=== PATIENT | female | born 1950 | race Caucasian/White ===

== ENCOUNTER 2022-05-22 09:27 | Outpatient (REF) | payer MEDICARE, SELFPAY ==
[2022-05-22 09:38] LABS: MANUAL DIFF FLAG NO
[2022-05-22 10:02] LABS: Basophils Absolute Auto 0.1 X10*3/uL (0.0-0.2); Eosinophils Absolute Auto 0.1 X10*3/uL (0.0-0.4); Eosinophils Percent Auto 2.3 % (0-4); Hematocrit 44.6 % (37.0-47.0); Hemoglobin 14.6 g/dl (12.0-16.0); Imm Gran Abs Auto 0.02 X10*3/uL (0.00-0.03); Imm Gran Pct Auto 0.3 % (0.0-0.4); Lymphocytes Absolute Auto 1.6 X10*3/uL (1.2-4.9); Lymphocytes Percent Auto 26.8 % (20-40); Mean Corpuscular HGB Conc 32.7 g/dl (31.0-35.0); Mean Corpuscular Volume 88.5 fL (80.0-98.0); Monocytes Absolute Auto 0.6 X10*3/uL (0.1-1.2); Monocytes Percent Auto 10.3 % (2-11); Neutrophils Absolute Auto 3.6 x10*3/uL (2.0-8.3); Neutrophils Percent Auto 59.3 % (45-73); Platelet Count 350 X10*3/uL (160-400); Red Blood Count 5.04 X10*6/uL (4.20-5.50); Red Cell Distribution Width 12.9 % (11.0-16.0); White Blood Count 6.1 X10*3/uL (4.8-10.8)
[2022-05-22 10:21] LABS: Alanine Aminotransferase 12 U/L (0-31); Albumin Level 4.2 g/dL (3.5-5.0); Alkaline Phosphatase 44 U/L (39-117); Anion Gap 14 (12-20); Aspartate Amino Transferase 19 U/L (5-31); Bilirubin Total 0.6 mg/dL (0.0-1.0); Blood Urea Nitrogen 7 mg/dL (9-16); Calcium 9.5 mg/dL (8.4-10.2); Carbon Dioxide 28 mmol/L (22-29); Chloride 106 mmol/L (96-108); Cholesterol 203 mg/dL; Estimated Glomerular Filt Rate > 60; Glucose Random 101 mg/dL (60-115); HDL Cholesterol 61 mg/dL; LDL Cholesterol Calculated 109 mg/dl; Potassium 4.6 mmol/L (3.3-5.1); Sodium 143 mmol/L (135-145); Total Protein 6.5 g/dL (6.5-8.0); Triglycerides 165 mg/dL
== END 2022-05-22 09:28 | disposition home or self-care (01) ==
LOC: HO.LAB 09:27
PROVIDERS: PCP Internal Medicine; Visit Provider Internal Medicine
DX: K21.9 Gastro-esophageal reflux disease without esophagitis (principal); M81.8 Other osteoporosis without current pathological fracture; Z86.010 Personal history of colon polyps
CPT/HCPCS: 36415; 80053; 80061; 85025

== ENCOUNTER 2022-06-19 10:41 | Outpatient (REF) | payer MEDICARE, SELFPAY ==
[2022-06-19 14:20] LABS: Thyroid Stimulating Hormone 1.72 uIU/mL (0.32-4.0)
[2022-06-19 14:23] LABS: Vitamin B12 184 pg/mL (200-900)
== END 2022-06-19 10:42 | disposition home or self-care (01) ==
LOC: HO.10HDL 10:41
PROVIDERS: Visit Provider Internal Medicine
DX: Z00.00 Encounter for general adult medical examination without abnormal findings (principal); I10 Essential (primary) hypertension; M70.52 Other bursitis of knee, left knee; Z86.010 Personal history of colon polyps
CPT/HCPCS: 36415; 82607; 84443

== ENCOUNTER 2022-10-03 08:18 | Day surgery (SDC) | payer MEDICARE, SELFPAY ==
--- NOTE | 2022-09-29 12:52 | HO.ANESPROP2 ---
Documented by User: Felecia Sullivan NP 09/29/22 12:52 HPI - Anesthesia Eval Consult details Narrative: 72yo F for Colonoscopy [facility] Past Medical History Medical History Colon polyps HTN (hypertension) Surgical History Surgical History H/O elbow surgery Hx of colonoscopy Hx of tonsillectomy Social History Social History Patient Tobacco Use Status: Former Tobacco user Quit Date: 30 yrs ago Use of substances other than those prescribed or required for medical reasons: No Are you DNR?: No Advance Directives: No Advance Directives Information Provided: Yes Meds Allergies Allergy/AdvReac Type Severity Reaction Status Date / Time No Known Allergies Allergy Verified 10/03/22 08:41 Home Medications Medication Instructions Recorded Confirmed Last Taken Type cyanocobalamin (vitamin B-12) 1 tab sublingual DAILY 09/29/22 09/29/22 Unknown History 3,000 mcg sublingual lozenge losartan 50 mg tablet 1 tab PO DAILY 09/29/22 09/29/22 Unknown History Exam Exam Date and Time: September 29, 2022 1252 Pertinent Lab Results Pertinent Lab Results: Laboratory Tests 05/22/22 05/22/22 09:36 09:36 WBC 6.1 Hgb 14.6 Hct 44.6 Plt Count 350 Sodium 143 Potassium 4.6 Chloride 106 Carbon Dioxide 28 BUN 7 L Creatinine 0.83 Assessment and Plan Assessment Anesthesia Assessment: Chart Reviewed Documented by User: Ze Hair MD 10/03/22 09:51 [facility] Past Medical History Medical History Colon polyps HTN (hypertension) Family History Family history of problems with anesthesia: No Surgical History Surgical History H/O elbow surgery Hx of colonoscopy Hx of tonsillectomy History of Problems with Anesthesia: No Social History Social History Patient Tobacco Use Status: Former Tobacco user Quit Date: 30 yrs ago Use of substances other than those prescribed or required for medical reasons: No Are you DNR?: No Advance Directives: No Advance Directives Information Provided: Yes Meds Allergies Allergy/AdvReac Type Severity Reaction Status Date / Time No Known Allergies Allergy Verified 10/03/22 08:41 Home Medications Medication Instructions Recorded Confirmed Last Taken Type cyanocobalamin (vitamin B-12) 1 tab sublingual DAILY 09/29/22 09/29/22 Unknown History 3,000 mcg sublingual lozenge losartan 50 mg tablet 1 tab PO DAILY 09/29/22 09/29/22 Unknown History Exam Airway Mallampati Class: II TM Dist: >3cm Neck ROM: Full Loose/Missing/Broken Teeth: No (Rrr) Lungs: clear Assessment and Plan Final Anesthetic Review Family History of Problems with Anesthesia: No History of Problems with Anesthesia: No NPO: Yes ASA Class: II Final Preanesthetic Review: No Changes in Pt Med Stat and Anes Risks/Benef Reviewed Patient Risk: Low Procedure Risk: Low Anesthetic Plan Anesthetic Plan: MAC: Disposition: Standard PACU
[2022-10-03 08:42] VITALS: BMI 29.2
[2022-10-03 08:52] VITALS: BP 128/73; PULSE 99; RESP 16; TEMP 37; O2SAT 94
[2022-10-03] MEDS: Lactated Ringers 1,000 ML 100 ML IVCONT (09:02)
--- NOTE | 2022-10-03 09:46 | MHC.SHP ---
Pre-Procedural Eval Section A Date of Service: 10/03/22 The patient is an INPATIENT: No Changes since office visit: No Cold of Flu in the past 2 weeks, No New Medical Problems, No Changes in Medication and No Patient answered all questions The History & Physical has been completed within 30 days and I have reviewed it.: Yes Section B Chief Complaint: screening Allergies: Allergies Allergy/AdvReac Type Severity Reaction Status Date / Time No Known Allergies Allergy Verified 10/03/22 08:41 Plan I have reviewed the history and physical and performed a pertinent physical examination on my patient. No changes have occurred unless specified. Time Spent With Patient Time: Total time managing care of this patient today ____ minutes.
--- NOTE | 2022-10-03 10:34 | P.BOP_ITS ---
Brief Operative Note Date of Service: 10/03/22 Pre-op diagnosis: screening Post-op diagnosis: same Procedure: colonoscopy Surgeon: Jb Levine Anesthesia: MAC Was an Rehab Technician used for this Procedure?: No Estimated blood loss (mL): 5 Pathology: other Condition: stable Disposition: PACU
[2022-10-03 10:38] VITALS: BP 117/82; PULSE 103; RESP 14; TEMP 37.1; O2SAT 95
[2022-10-03 10:53] VITALS: BP 120/76; PULSE 86; RESP 16; TEMP 37.1; O2SAT 96
--- NOTE | 2022-10-03 11:07 | OP_ITS ---
SURGEON: Jb Levine MD INDICATIONS: Colon cancer screening. PREOPERATIVE DIAGNOSIS: POSTOPERATIVE DIAGNOSIS: PROCEDURE PERFORMED: Colonoscopy to the terminal ileum with snare polypectomy and biopsy. ESTIMATED BLOOD LOSS: COMPLICATIONS: ANESTHESIA: Monitored anesthesia care. ASSISTANTS: SPECIMENS: DESCRIPTION OF PROCEDURE: The procedure was performed on 10/03/2021. A history and physical were performed. The risks and benefits of the procedure were explained to the patient. Informed consent was obtained. The patient was placed in the left lateral decubitus position. A digital rectal exam was performed and was found to be normal. The Olympus pediatric video colonoscope was introduced into the rectum and advanced to the cecum without difficulty. The cecum was identified by transillumination, palpation, identification of ileocecal valve. Examination was performed. The scope was removed. She tolerated the procedure well and was returned to recovery room in stable condition. FINDINGS: The terminal ileum was normal. The visualized colonic mucosa was normal. In the right colon, there was an 8 x 10 mm sessile polyp, which was removed in piecemeal manner with a snare. At 90 cm, there was a less than 5 mm sessile polyp, which was removed with biopsy forceps. Retroflexed examination showed small internal hemorrhoids. There was mild sigmoid diverticulosis. No other polyps were identified. IMPRESSION: Colon polyps. RECOMMENDATION: Follow up the biopsy results. MD CHRIS Quintana/SHERMAN / [id number]
== END 2022-10-03 11:45 | disposition home or self-care (01) ==
PROVIDERS: PCP Internal Medicine; Visit Provider Internal Medicine Gastroenterology
PROC: 0DJD8ZZ Inspection of Lower Intestinal Tract, Via Natural or Artificial Opening Endoscopic (ICD-10-PCS; CPT 45378; principal; 2022-10-03 09:30)
DX: Z12.11 Encounter for screening for malignant neoplasm of colon (principal); Z86.010 Personal history of colon polyps; D12.2 Benign neoplasm of ascending colon; D12.3 Benign neoplasm of transverse colon; K57.30 Diverticulosis of large intestine without perforation or abscess without bleeding; K64.8 Other hemorrhoids; I10 Essential (primary) hypertension; Z79.899 Other long term (current) drug therapy
CPT/HCPCS: 45385; 45380; 88305

== ENCOUNTER 2022-12-05 10:59 | Outpatient (REF) | payer MEDICARE, SELFPAY ==
[2022-12-05 15:06] LABS: Alanine Aminotransferase 13 U/L (0-31); Albumin Level 4.2 g/dL (3.5-5.0); Alkaline Phosphatase 45 U/L (39-117); Anion Gap 13 (12-20); Aspartate Amino Transferase 21 U/L (5-31); Bilirubin Total 0.8 mg/dL (0.0-1.0); Blood Urea Nitrogen 7 mg/dL (9-16); Calcium 9.4 mg/dL (8.4-10.2); Carbon Dioxide 27 mmol/L (22-29); Chloride 105 mmol/L (96-108); Estimated Glomerular Filt Rate > 60; Glucose Random 99 mg/dL (60-115); Potassium 4.1 mmol/L (3.3-5.1); Sodium 141 mmol/L (135-145); Total Protein 6.4 g/dL (6.5-8.0)
[2022-12-05 15:28] LABS: Folate 16.9 ng/mL (> or = 4.0); Vitamin B12 1552 pg/mL (200-900)
== END 2022-12-05 11:00 | disposition home or self-care (01) ==
LOC: HO.10HDL 10:59
PROVIDERS: Visit Provider Internal Medicine
DX: D51.9 Vitamin B12 deficiency anemia, unspecified (principal); I10 Essential (primary) hypertension
CPT/HCPCS: 36415; 80053; 82607; 82746

== ENCOUNTER 2023-05-09 09:11 | Outpatient (REF) | payer MEDICARE, SELFPAY ==
[2023-05-09 10:32] LABS: MANUAL DIFF FLAG NO
[2023-05-09 10:44] LABS: Basophils Absolute Auto 0.1 X10*3/uL (0.0-0.2); Basophils Percent Auto 0.8 % (0-2); Eosinophils Absolute Auto 0.2 X10*3/uL (0.0-0.4); Hematocrit 41.3 % (37.0-47.0); Hemoglobin 13.9 g/dl (12.0-16.0); Imm Gran Abs Auto 0.02 X10*3/uL (0.00-0.03); Imm Gran Pct Auto 0.3 % (0.0-0.4); Lymphocytes Absolute Auto 2.4 X10*3/uL (1.2-4.9); Lymphocytes Percent Auto 32.6 % (20-40); Mean Corpuscular HGB Conc 33.7 g/dl (31.0-35.0); Mean Corpuscular Volume 89.2 fL (80.0-98.0); Mean Platelet Volume 10.5 fL (9.4-12.3); Monocytes Absolute Auto 0.7 X10*3/uL (0.1-1.2); Monocytes Percent Auto 9.5 % (2-11); Neutrophils Percent Auto 54.8 % (45-73); Platelet Count 378 X10*3/uL (160-400); Red Blood Count 4.63 X10*6/uL (4.20-5.50); Red Cell Distribution Width 12.7 % (11.0-16.0); White Blood Count 7.4 X10*3/uL (4.8-10.8)
[2023-05-09 11:06] LABS: Alanine Aminotransferase 12 U/L (0-31); Alkaline Phosphatase 37 U/L (39-117); Anion Gap 14 (12-20); Aspartate Amino Transferase 21 U/L (5-31); Bilirubin Total 0.5 mg/dL (0.0-1.0); Blood Urea Nitrogen 7 mg/dL (9-16); Calcium 9.2 mg/dL (8.4-10.2); Carbon Dioxide 24 mmol/L (22-29); Chloride 106 mmol/L (96-108); Cholesterol 197 mg/dL; Estimated Glomerular Filt Rate > 60; Glucose Random 107 mg/dL (60-115); HDL Cholesterol 58 mg/dL; LDL Cholesterol Calculated 114 mg/dl; Potassium 3.8 mmol/L (3.3-5.1); Sodium 140 mmol/L (135-145); Total Protein 6.6 g/dL (6.5-8.0); Triglycerides 129 mg/dL
== END 2023-05-09 09:12 | disposition home or self-care (01) ==
LOC: HO.10HDL 09:11
PROVIDERS: Visit Provider Internal Medicine
DX: I10 Essential (primary) hypertension (principal); M70.52 Other bursitis of knee, left knee
CPT/HCPCS: 36415; 80053; 80061; 85025

== ENCOUNTER 2023-11-26 13:47 | Outpatient (AMB) | payer MEDICARE, SELFPAY ==
--- NOTE | 2023-11-26 13:51 | A.OFFVIS_ITS ---
Intake Vital Signs 11/26/23 13:53 Height 5 ft 3 in Weight 171 lb 8.314 oz BMI 30.4 BP 120/60 Blood Pressure Location Lt brachial Position Sitting Pulse 114 H Intake Visit Reasons: RISK TECH/Dr. 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 She is a pleasant 73-year-old female with slightly anxious with prior history of hyperlipidemia and hypertension. Patient recently EKG was noted to Q-waves in inferior leads. She was referred here for further evaluation. She denies any cardiac symptoms. Although she notices that heart rate is usually elevated in healthcare setting. She denies any palpitations. Denies any worsening exertional chest pain or shortness of breath. She denies any heart failure symptoms. She was referred here for further evaluation. [facility], [facility] Medical History Colon polyps HTN (hypertension) Surgical History Hx of tonsillectomy Hx of colonoscopy H/O elbow surgery Family History Father Diabetes Mother No problems noted. Social History Patient Tobacco Use Status: Former Tobacco user Quit Date: 30 yrs ago Review of Systems Const Denies chills, Denies daytime sleepiness, Denies fatigue, Denies fever(s), Denies frequent falls, Denies poor appetite, Denies snoring, Denies stops breathing during sleep, Denies weakness, Denies weight gain and Denies weight loss Eyes Denies loss of vision ENT Denies dizziness and Denies hearing loss Card Denies chest pain, Denies claudication, Denies leg edema, Denies lightheadedness, Denies palpitations, Denies dyspnea, Denies dyspnea on exertion and Denies orthopnea Resp Denies cough, Denies excessive phlegm production, Denies dyspnea, Denies dyspnea on exertion, Denies snoring and Denies wheezing GI Denies abdominal pain, Denies hematochezia, Denies change in bowel habits, Denies nausea and Denies vomiting Denies urinary frequency and Denies dysuria Musc Denies arthralgias, Denies muscle weakness, Denies numbness and Denies other (frequent falls) Skin/Breast Denies nail changes and Denies rash Neuro Denies Abnormal speech present, Denies dizziness, Denies frequent falls, Denies loss of vision, Denies memory loss, Denies numbness and Denies weakness Psych Denies depression and Denies memory loss Endo Denies fatigue and Denies palpitations Hany/Lymph Reports easy bruising and Reports other (anemia) Aller/Immun Denies wheezing Physical Exam Vital Signs: Last Vital Signs Pulse 114 H 11/26/23 13:53 BP 120/60 11/26/23 13:53 BMI result Body Mass Index 30.4 Const General: cooperative, comfortable, no acute distress, alert, awake and anxious Nutritional Appearance: obese Limitations: no limitations HEENT Head: Yes normocephalic and Yes atraumatic Neck Neck: Yes trachea midline, Yes supple and Yes no JVD Resp Effort & Inspection: normal respiratory effort Auscultation: clear to auscultation bilaterally Cardio Jugular venous distension: no JVD Rate: tachycardic Rhythm: regular rhythm Heart sounds: S1 normal heart sound present, S2 normal heart sound present, no click, no gallops, no murmurs and no rubs GI Auscultation: normal bowel sounds Skin General skin exam: no rashes or lesions noted Neuro General: no focal motor deficits Speech: No Abnormal speech present Extrem General: Yes no clubbing, cyanosis or edema Psych Appearance: grossly normal Affect: Anxious affect present Office Procedures EKG Details: EKG shows sinus tachycardia with normal EKG [id number], Complete Assessment & Plan Assessment & Plan (1) Abnormal EKG: Code(s): R94.31 - Abnormal electrocardiogram [ECG] [EKG] Plan: Abnormal EKG with Q-waves on the 12 lead EKG done through office multiple risk factors. She has no cardiac symptoms. Although asymptomatic myocardial ischemia needs to be ruled out. Most likely abnormal EKG due to body habitus and placement of leads as well as respiratory phase in which EKG was performed. I would suggest her to undergo stress echocardiogram to evaluate for myocardial ischemia. This test will be scheduled in near future. Also suggest echocardiogram for underlying hypertension to for hypertensive heart disease as well as pulmonary hypertension. Further treatment based on the findings. (2) HTN (hypertension): Code(s): I10 - Essential (primary) hypertension Plan: Hypertension which is currently well optimized advised to monitor blood pressure at home maintain a log. Goal blood pressure less than 130/84. Low-salt diet was advised. Continue participate in aggressive lifestyle modification with weight loss as well as regular physical activity. Noted to have sinus tachycardia which appears to be more related to anxiety. Continue statin therapy with target goal LDL definitely less than 100 mg/dL. Further screening can be performed with a coronary calcium score patient so wishes. Will follow up in the clinic after above-mentioned test. Thank you for allowing me to partake in the care (3) Sinus tachycardia: Code(s): R00.0 - Tachycardia, unspecified Plan: Sinus tachycardia related to anxiety. No specific treatment required Orders: Orders CA echo stress exercise 11/26/23 R94.31 - Abnormal electrocardiogram [ECG] [EKG] CT Coronary Calcium Score 4 Weeks I10 - Essential (primary) hypertension TSH reflex Free T4 11/26/23 I10 - Essential (primary) hypertension Basic Metabolic Panel 11/26/23 I10 - Essential (primary) hypertension Complete Blood Count no Diff 11/26/23 I10 - Essential (primary) hypertension CA echo transthoracic complete 11/26/23 R94.31 - Abnormal electrocardiogram [ECG] [EKG] Coding Level of Care Code New Pt Level 4 (11977) Diagnoses Abnormal EKG R94.31 HTN (hypertension) I10 Sinus tachycardia R00.0 CPT Codes EKG - CPT: 17113-[id number], Complete ([id number])
[2023-11-26 13:53] VITALS: BP 120/60; PULSE 114; BMI 30.4
== END 2023-11-26 14:15 | disposition home or self-care (01) ==
PROVIDERS: PCP Internal Medicine; Visit Provider Internal Medicine Cardiovascular Disease
DX: R94.31 Abnormal electrocardiogram [ECG] [EKG] (principal); I10 Essential (primary) hypertension; R00.0 Tachycardia, unspecified
CPT/HCPCS: 93010; 99204

== ENCOUNTER → 2023-11-26 13:47 | Outpatient (BNVA) | payer MEDICARE, SELFPAY | PROVIDERS: PCP Internal Medicine; Visit Provider Internal Medicine Cardiovascular Disease | DX: R94.31 Abnormal electrocardiogram [ECG] [EKG] (principal); I10 Essential (primary) hypertension; R00.0 Tachycardia, unspecified | CPT/HCPCS: 93005; 99202 ==

== ENCOUNTER 2023-12-12 09:45 | Outpatient (REF) | payer MEDICARE, SELFPAY ==
[2023-12-12 10:47] LABS: Alanine Aminotransferase 14 U/L (0-31); Albumin Level 4.1 g/dL (3.5-5.0); Alkaline Phosphatase 41 U/L (39-117); Anion Gap 9 (12-20); Aspartate Amino Transferase 19 U/L (5-31); Bilirubin Total 0.6 mg/dL (0.0-1.0); Blood Urea Nitrogen 8 mg/dL (9-16); Calcium 9.1 mg/dL (8.4-10.2); Carbon Dioxide 28 mmol/L (22-29); Chloride 107 mmol/L (96-108); Cholesterol 145 mg/dL (<200); Estimated Glomerular Filt Rate > 60; Glucose Random 102 mg/dL (60-115); HDL Cholesterol 62 mg/dL (>40); LDL Cholesterol Calculated 61 mg/dL (<100); Potassium 4.2 mmol/L (3.3-5.1); Sodium 140 mmol/L (135-145); Total Protein 6.6 g/dL (6.5-8.0); Triglycerides 112 mg/dL (<150)
== END 2023-12-12 09:46 | disposition home or self-care (01) ==
LOC: HO.10HDL 09:45
PROVIDERS: Visit Provider Internal Medicine
DX: I10 Essential (primary) hypertension (principal); E78.00 Pure hypercholesterolemia, unspecified; H26.9 Unspecified cataract; K44.9 Diaphragmatic hernia without obstruction or gangrene
CPT/HCPCS: 36415; 80053; 80061

== ENCOUNTER → 2024-01-04 14:45 | Outpatient (REF) | payer MEDICARE, SELFPAY ==
--- NOTE | 2024-01-04 14:48 | CA_ITS ---
Transthoracic Echocardiogram Patient (Last, First, Middle): Iris Bunn J Gender: Female Date of : 1950 Age: 73 Procedure Date: 01/04/2024 Procedure Type: Transthoracic Echocardiogram Location: OP Height: 160.02 cm Weight: 74.84 kg BSA: 1.78 m2 Heart Rate: 76 bpm BP: 125 / 70 mmHg Children'S Entertainer: AMBROSIO Kruger MD: Cristobal Jackson MD Flight Readiness Technician: Cristobal Jackson MD Symptoms: R94.31 - Abnormal electrocardiogram [ECG] [EKG] Study Quality: Adequate ECG Rhythm: Sinus Conclusions: - 1. Normal LV ejection fraction of 60 65% with impaired relaxation filling pattern 2. Mild aortic regurgitation 3. Normal RV systolic pressure 4. Upper limits of normal ascending aortic size at 3.5 cm 5. No gross pericardial effusion Findings Left Ventricle Normal left ventricular size, thickness, and systolic function. The visually estimated ejection fraction is between 60-65%. Spectral Doppler is indicative of an impaired relaxation filling pattern. E/E prime ratio is between 8 and 15 consistent with indeterminate filling pressures. Right Ventricle Normal right ventricular cavity size and systolic function. Atria Both atria are normal in size. Interatrial shunt cannot be excluded. Aortic Valve There is mild calcification of the aortic valve. There is no aortic valve stenosis. There is mild aortic valve regurgitation. Mitral Valve Likely normal mitral valve structure and function. There is trace mitral valve regurgitation. There is no mitral valve stenosis. Pulmonic Valve The pulmonic valve is likely normal. Tricuspid Valve Normal tricuspid valve structure. There is mild tricuspid valve regurgitation. The right ventricular systolic pressure is normal. The right ventricular systolic pressure is 26 mmHg. Normal right atrial pressure. There is no evidence of pulmonary hypertension. Great Vessels The pulmonary artery was not well visualized. Venous The inferior vena cava is normal in size and collapses greater than 50% with inspiration. Pericardium/Pleural There is no evidence of pericardial effusion. Prior Study Comparison No prior study available for comparison. Measurements 2D Linear Measurements IVSd: 1.19 0.6-0.9/0.6-1.0 cm LVIDd: 4.03 3.9-5.3/4.2-5.9 cm LVIDd Index: 2.26 2.4-3.2/2.2-3.1 cm/m2 LVIDs: 2.42 2.0-3.6 cm LVPWd: 0.99 0.7-1.1 cm LA Diam: 3.50 2.7-3.8/3.0-4.0 cm LAIDs Index: 1.97 1.5-2.3 cm/m2 LV Mass: 180.39 67-162/88-224 g LV Mass Index: 101.34 43-95/49-115 g/m2 LVOT Diam: 2.10 3.0+(-)1.3 cm Mitral Valve MV Pk E: 0.74 MV PK A: 0.89 MV Decel Time: 255.00 E/A: 0.80 E'Lateral: 7.72 E'Medial: 5.11 E/E' Med: 14.50 E/E' Lat: 9.60 PHT: 75.00 MVA PHT: 2.93 Decel Forrest: 2.91 Aortic Valve AoV Pk Benson: 1.38 AoV Mn Benson: 1.01 AoV VTI: 0.29 AoV Pk Grad: 8.00 Aov Mn Grad: 4.00 AISHA Cont.VTI: 3.51 LVOT LVOT Pk Benson: 1.30 LVOT Mn Benson: 0.87 LVOT VTI: 0.30 LVOT Pk Grad: 7.00 LVOT Mn Grad: 4.00 LVOT Diam: 2.10 LVOT Area: 3.46 Diastolic Function MV Pk E: 0.74 MV Pk A: 0.89 E/A: 0.80 E'Medial: 5.11 E/E' Med: 14.50 E' Laterial: 7.72 E/E' Lat: 9.60 Right Ventricle TAPSE (mm): 24.80 Tricuspid Valve TR Pk Benson: 2.42 TR Pk Grad: 23.00 RA Press: 3.00 RVSP: 26.00 Great Vessels Aorta Sinus of Valsalva: 3.40 2.0-3.5 cm Ao Asc: 3.50 2.1-3.4 cm Ao Arch: 2.90 Updated in Other Vendor System with Status of Final Cristobal Jackson MD electronically signed on 01/05/2024 11:26:41 AM with status of Final
== END ==
LOC: HO.CARD 14:45
PROVIDERS: PCP Internal Medicine; Visit Provider Internal Medicine Cardiovascular Disease
DX: R94.31 Abnormal electrocardiogram [ECG] [EKG] (principal)
CPT/HCPCS: 93306

== ENCOUNTER → 2024-01-04 14:48 | Outpatient (BNV) | payer MEDICARE, SELFPAY | PROVIDERS: PCP Internal Medicine; Visit Provider Internal Medicine Cardiovascular Disease | DX: I35.1 Nonrheumatic aortic (valve) insufficiency (principal) | CPT/HCPCS: 93306 ==

== ENCOUNTER → 2024-01-10 10:56 | Outpatient (REF) | payer MEDICARE, SELFPAY ==
--- NOTE | 2024-01-10 10:58 | CA_ITS ---
Acquisition Time: 2024-01-10 10:54:58 Total Exercise Time: 00:06:00 Test Indications: ABN EKG Medications: SEE H Protocol: DAYAMI Max HR: 162 BPM 110% of Pred: 147 BPM Max BP: 148/072 mmHG Max Work Load: 7.0 METS Exercise stress test exercise 6 min of Dayami protocol achieving 100% MPHR, with mild SOB, no chest discomfort, without arrhythmias, with noromotensive response to exericse, without EKG changes. Echo images obtained by tech at rest and immediately post peak exericse. Definity contrast used Test reviewed with Dr. Hall. Referred By: Cristobal Jackson Overread By: Krystle Jaramillo
== END ==
LOC: HO.CARD 10:56
PROVIDERS: PCP Internal Medicine; Visit Provider Internal Medicine Cardiovascular Disease
DX: R94.31 Abnormal electrocardiogram [ECG] [EKG] (principal)
CPT/HCPCS: 93350; Q9957

== ENCOUNTER → 2024-01-10 10:58 | Outpatient (BNV) | payer MEDICARE, SELFPAY | PROVIDERS: PCP Internal Medicine; Visit Provider Nurse Practitioner | DX: R06.02 Shortness of breath (principal); R94.31 Abnormal electrocardiogram [ECG] [EKG] | CPT/HCPCS: 93016; 93018; 93350; 93352 ==

== ENCOUNTER 2024-03-31 11:05 | Outpatient (AMB) | payer MEDICARE, SELFPAY ==
--- NOTE | 2024-03-31 11:12 | A.OFFVIS_ITS ---
Vital Signs 03/31/24 11:13 Height 5 ft 3 in Weight 174 lb 2.643 oz BMI 30.8 BP 124/68 Blood Pressure Location Lt brachial Position Sitting Pulse 88 Intake Visit Reasons: 3 mth f/up echo/ stress echo/ labs Intake Note: 3mo f/u Echo/labs. 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 No new symptoms. Coronary calcium score suggested predominantly LAD territory calcium buildup. Stress echocardiogram at moderate workload was negative for ischemia. Echocardiogram shows normal LV ejection fraction with mild aortic regurgitation. She denies any new symptoms. Her most recent LDL is well optimized on atorvastatin therapy. [facility] Medical History (Updated 03/31/24 @ 12:15 by Cristobal Jackson MD) CAD (coronary artery disease) Colon polyps HTN (hypertension) Surgical History Hx of tonsillectomy Hx of colonoscopy H/O elbow surgery Family History Father Diabetes Mother No problems noted. Social History Patient Tobacco Use Status: Former Tobacco user Review of Systems Const Reports chills, Reports fatigue, Reports fever(s), Reports frequent falls, Reports weakness, Reports weight gain and Reports weight loss ENT Reports dizziness Card Reports chest pain, Reports leg edema, Reports lightheadedness, Reports palpitations, Reports dyspnea on exertion and Reports orthopnea Resp Reports cough and Reports dyspnea on exertion GI Reports hematochezia and Reports change in stool character Musc Reports abnormal gait, Reports muscle weakness, Reports numbness, Reports radiating pain into limb and Reports tingling Neuro Denies Abnormal speech present, Reports abnormal gait, Reports dizziness, Reports frequent falls, Reports numbness, Reports tingling and Reports weakness Endo Reports fatigue and Reports palpitations Physical Exam Vital Signs: Last Vital Signs Pulse 88 03/31/24 11:13 BP 124/68 03/31/24 11:13 BMI result Body Mass Index 30.8 Const General: cooperative, comfortable, no acute distress, alert, awake and anxious Nutritional Appearance: obese Limitations: no limitations HEENT Head: Yes normocephalic and Yes atraumatic Neck Neck: Yes trachea midline, Yes supple and Yes no JVD Resp Effort & Inspection: normal respiratory effort Auscultation: clear to auscultation bilaterally Cardio Jugular venous distension: no JVD Rate: tachycardic Rhythm: regular rhythm Heart sounds: S1 normal heart sound present, S2 normal heart sound present, no click, no gallops, no murmurs and no rubs GI Auscultation: normal bowel sounds Skin General skin exam: no rashes or lesions noted Neuro General: no focal motor deficits Speech: No Abnormal speech present Extrem General: Yes no clubbing, cyanosis or edema Psych Appearance: grossly normal Affect: Anxious affect present Assessment & Plan Assessment & Plan (1) CAD (coronary artery disease): Code(s): I25.10 - Atherosclerotic heart disease of [place] coronary artery without angina pectoris Category: Medical Plan: Coronary artery disease based on elevated calcium score predominantly in the LAD territory by coronary calcium score. Her stress echocardiogram is within normal limits. This is suggestive of nonobstructive coronary disease. At this point time would suggest continued medical therapy. Continue statin therapy with LDL extremely well optimized for presence of coronary disease. Importance of management of risk factors were discussed advised to call me with any exertional symptoms that may require further workup. (2) HTN (hypertension): Code(s): I10 - Essential (primary) hypertension Category: Medical Plan: Hypertension which is currently well optimized advised to monitor blood pressure at home maintain a log. Goal blood pressure less than 130/84. Low-salt diet was discussed. Advised to increase activity level to improve overall long-term cardiovascular prognosis. Will follow up in the clinic in 1 year's time, sooner p.r.n.. Thank you for allowing me to partake in her care Coding Level of Care Code Est Pt Level 3 (01871) Diagnoses CAD (coronary artery disease) I25.10 HTN (hypertension) I10
[2024-03-31 11:13] VITALS: BP 124/68; PULSE 88; BMI 30.8
== END 2024-03-31 11:32 | disposition home or self-care (01) ==
PROVIDERS: PCP Internal Medicine; Visit Provider Internal Medicine Cardiovascular Disease
DX: I25.10 Atherosclerotic heart disease of native coronary artery without angina pectoris (principal); I10 Essential (primary) hypertension
CPT/HCPCS: 99213

== ENCOUNTER → 2024-03-31 11:05 | Outpatient (BNVA) | payer MEDICARE, SELFPAY | PROVIDERS: PCP Internal Medicine; Visit Provider Internal Medicine Cardiovascular Disease | DX: I25.10 Atherosclerotic heart disease of native coronary artery without angina pectoris (principal); I10 Essential (primary) hypertension | CPT/HCPCS: 99212 ==

== ENCOUNTER 2024-07-25 11:10 | Outpatient (REF) | payer MEDICARE, SELFPAY ==
[2024-07-25 13:15] LABS: MANUAL DIFF FLAG NO
[2024-07-25 13:31] LABS: Basophils Absolute Auto 0.1 X10*3/uL (0.0-0.2); Basophils Percent Auto 0.8 % (0-2); Eosinophils Absolute Auto 0.1 X10*3/uL (0.0-0.4); Eosinophils Percent Auto 1.2 % (0-4); Hematocrit 40.6 % (37.0-47.0); Hemoglobin 14.2 g/dl (12.0-16.0); Imm Gran Abs Auto 0.01 X10*3/uL (0.00-0.03); Imm Gran Pct Auto 0.2 % (0.0-0.4); Lymphocytes Absolute Auto 1.6 X10*3/uL (1.2-4.9); Lymphocytes Percent Auto 26.9 % (20-40); Mean Corpuscular Hemoglobin 30.3 pg (27.0-33.0); Mean Corpuscular Volume 86.8 fL (80.0-98.0); Mean Platelet Volume 10.3 fL (9.4-12.3); Monocytes Absolute Auto 0.6 X10*3/uL (0.1-1.2); Monocytes Percent Auto 9.1 % (2-11); Neutrophils Absolute Auto 3.7 x10*3/uL (2.0-8.3); Neutrophils Percent Auto 61.8 % (45-73); Platelet Count 323 X10*3/uL (160-400); Red Blood Count 4.68 X10*6/uL (4.20-5.50); Red Cell Distribution Width 12.8 % (11.0-16.0); White Blood Count 6.1 X10*3/uL (4.8-10.8)
[2024-07-25 14:20] LABS: Alanine Aminotransferase 15 U/L (0-31); Albumin Level 4.2 g/dL (3.5-5.0); Alkaline Phosphatase 44 U/L (39-117); Aspartate Amino Transferase 25 U/L (5-31); Blood Urea Nitrogen 9 mg/dL (9-16); Calcium 9.4 mg/dL (8.4-10.2); Estimated Glomerular Filt Rate > 60; Glucose Random 106 mg/dL (60-115); Thyroid Stimulating Hormone 2.07 uIU/mL (0.32-4.0); Total Protein 6.7 g/dL (6.5-8.0)
[2024-07-25 14:34] LABS: Anion Gap 11 (12-20); Carbon Dioxide 23 mmol/L (22-29); Chloride 109 mmol/L (96-108); Potassium 4.2 mmol/L (3.3-5.1); Sodium 139 mmol/L (135-145)
== END 2024-07-25 11:11 | disposition home or self-care (01) ==
LOC: HO.10HDL 11:10
PROVIDERS: Visit Provider Internal Medicine
DX: E78.00 Pure hypercholesterolemia, unspecified (principal); I10 Essential (primary) hypertension
CPT/HCPCS: 36415; 80053; 84443; 85025

== ENCOUNTER 2025-03-26 08:06 | Outpatient (REF) | payer SELFPAY ==
--- OUTSIDE RECORDS SUMMARY | 2025-03-26 08:17 | XMS_ITS | Patient Health Record ---
Author Organization [facility] Address [address] [place] [address] Care Team Providers Care Automobile Assembler Name Role Phone Mattadam Francesca Primary Care Provider Jb Camargo Jr Unavailable Allergies No Known Allergies Reason For Referral No Information Medications Medication SIG (Take, Route, Frequency, Duration) Notes Start Date End Date Status MiraLax (colon prep) 17 GM/SCOOP mixed with Gatorade or Crystal Light Orally begin at 5:00 p.m. the day before the procedure for 1 day 09/20/2022 Active Multi For Her 50+ - as directed Orally Active Vitamin D-3 125 MCG (5000 UT) as directed Orally Active Vitamin B 12 500 MCG 1 tablet Orally Onc e a day for 30 day(s) Active Losartan Potassium-HCTZ 50-12.5 MG 1 tablet Orally Once a day for 30 day(s) Active Immunizations Vaccine Route Administration Date Status Comme nts Influenza Unknown 08/31/2022 Administered Social History Tobacco Use: Social History Observation Description Date Details (start date - stop date) Never Smoker NA - NA Tobacco Use/Smoking Question Answer Notes Patient is a nonsmoker Alcohol Screen Question Answer Notes Did you have a drink containing alcohol in the p ast year? No Points 0 Interpretation Negative Problems Problem Type SNOMED Code ICD Code Onset Dates Problem Status W/U Status Risk Notes Problem 872732758 Colon cancer screening (Z12.11) Active confirmed Problem 585725521 Personal history of colonic polyps (Z86.010) Active confirmed Problem Diverticulosis of colon (091075355) Diverticulosis of colon (K57.30) Active confirmed Plan Of Treatment Future Test Test Name Order Date COLONOSCOPY 09/20/2022 Insurance Providers Payer Name Payer Address Payer Phone Subscriber Number Group Number Insured Name Patient Relationship to Insured Coverage Start Date Coverage End Date [employer] PREFERRED [address] [place] [phone] [id number] JAYE CRONIN Self - patient is the insured Medical (General) History Medical History History ICD Code Hypertension Personal history of colon polyps Surgical History Surgery Date(Month/Year) 2011
[2025-03-26 10:02] LABS: Alanine Aminotransferase 17 U/L (0-31); Albumin Level 4.4 g/dL (3.5-5.0); Alkaline Phosphatase 43 U/L (39-117); Anion Gap 11 (12-20); Aspartate Amino Transferase 27 U/L (5-31); Bilirubin Total 0.7 mg/dL (0.0-1.0); Blood Urea Nitrogen 12 mg/dL (9-16); Calcium 8.9 mg/dL (8.4-10.2); Carbon Dioxide 23 mmol/L (22-29); Chloride 111 mmol/L (96-108); Cholesterol 151 mg/dL (<200); Estimated Glomerular Filt Rate > 60; Glucose Random 115 mg/dL (60-115); HDL Cholesterol 61 mg/dL (>40); LDL Cholesterol Calculated 62 mg/dL (<100); Sodium 141 mmol/L (135-145); Total Protein 6.6 g/dL (6.5-8.0); Triglycerides 140 mg/dL (<150)
[2025-03-26 10:14] LABS: Estimated Average Glucose 120 mg/dL; Hemoglobin A1c % 5.8 % (<6.0)
== END 2025-03-26 08:07 | disposition home or self-care (01) ==
LOC: HO.10HDL 08:06
PROVIDERS: Visit Provider Internal Medicine
DX: Z00.00 Encounter for general adult medical examination without abnormal findings (principal); E78.00 Pure hypercholesterolemia, unspecified; I10 Essential (primary) hypertension; R63.5 Abnormal weight gain; R73.01 Impaired fasting glucose
CPT/HCPCS: 36415; 80053; 80061; 83036